=== PATIENT | male | born 1955 | race Caucasian/White ===

== ENCOUNTER 2018-05-08 17:23 | Outpatient (REF) | payer BC, SELFPAY ==
[2018-05-08 22:06] LABS: Anion Gap 8.8 mmol/L (3-11); BUN 21 mg/dL (7-18); CO2 26.2 mmol/L (21.0-32.0); CREATININE 1.04 mg/dL (0.70-1.30); Calcium 9.3 mg/dL (8.5-10.1); Chloride 105 mmol/L (98-107); Glucose 90 mg/dL (70-100); Potassium 4.2 mmol/L (3.5-5.1); Sodium 140 mmol/L (136-145)
[2018-05-10 09:34] LABS: Hepatitis C Ab w Rflx HCV PCR Negative (NEGAT)
== END 2018-05-08 17:43 ==
LOC: NCHCN 17:23
PROVIDERS: Visit Provider Internal Medicine
DX: I10 Essential (primary) hypertension (principal); E66.9 Obesity, unspecified; Z12.11 Encounter for screening for malignant neoplasm of colon
CPT/HCPCS: 80048; 86803

== ENCOUNTER 2019-11-07 08:05 | Outpatient (REF) | payer BC, SELFPAY ==
[2019-11-07 21:35] LABS: Anion Gap 10.6 mmol/L (3-11); BUN 24 mg/dL (7-18); CO2 24.4 mmol/L (21.0-32.0); CREATININE 0.92 mg/dL (0.70-1.30); Calcium 9.2 mg/dL (8.5-10.1); Calculated LDL 98 mg/dL (<100); Chloride 107 mmol/L (98-107); Cholesterol 155 mg/dL (<200); Glucose 99 mg/dL (74-106); HDL Cholesterol 39 mg/dL (40-60); Potassium 4.8 mmol/L (3.5-5.1); Sodium 142 mmol/L (136-145); Triglyceride 91 mg/dL (<150)
[2019-11-07 21:42] LABS: Hemoglobin A1C 5.8 % (3.8-5.6)
== END 2019-11-07 08:25 ==
LOC: NCHCN 08:05
PROVIDERS: PCP Internal Medicine; Visit Provider Internal Medicine
DX: I10 Essential (primary) hypertension (principal); E66.9 Obesity, unspecified
CPT/HCPCS: 80048; 80061; 83036

== ENCOUNTER 2020-11-12 16:38 | Outpatient (REF) | payer BC, SELFPAY ==
[2020-11-12 21:23] LABS: Anion Gap 9.6 mmol/L (3-11); BUN 25 mg/dL (7-18); CO2 27.4 mmol/L (21.0-32.0); Chloride 108 mmol/L (98-107); Glucose 118 mg/dL (74-106); Sodium 145 mmol/L (136-145)
== END 2020-11-12 16:39 | disposition home or self-care (01) ==
LOC: NCHCN 16:38
PROVIDERS: PCP Internal Medicine; Visit Provider Internal Medicine
DX: I10 Essential (primary) hypertension (principal); R73.03 Prediabetes
CPT/HCPCS: 80048; 83036

== ENCOUNTER 2021-01-14 14:29 | Emergency (ER) | payer BC, SELFPAY ==
[2021-01-14] VITALS (65 sets, daily range): BP systolic 107–137; BP diastolic 44–69; PULSE 55–91; RESP 10–20; TEMP 36.3; O2SAT 90–99
--- NOTE | 2021-01-14 14:30 | DI.US_ITS ---
Exam(s) US ABDOMEN EXAM: US ABDOMEN CLINICAL HISTORY: right upper abdominal pain, ?cholecystitis TECHNIQUE: Ultrasound abdomen performed using standard protocol. COMPARISON: No exams were available for comparison FINDINGS: Examination limited by patient body habitus. ABDOMINAL AORTA AND IVC: Visualized portions normal caliber. PANCREAS: Normal where visualized. LIVER: Increased echogenicity consistent with fatty infiltration. Hepatopedal flow in the Portal Vei n. The liver measures 19.4 cm long. GALLBLADDER: No evidence of cholelithiasis. No evidence of wall thickening. No pericholecystic fluid identified. BILIARY SYSTEM: Common bile duct measures < 7 mm. No intrahepatic biliary ductal dilation. MITCHELL'S SIGN: Negative. KIDNEYS: Kidneys are symmetric in size. No evidence of renal calculi. No evidence of hydronephrosis. No renal mass or cyst identified. SPLEEN: Not enlarged. ASCITES: None seen. IMPRESSION: Hepatomegaly and hepatic steatosis. DATA REPOSITORY:
[2021-01-14] MEDS: Normal Saline 1,000 ML 1000 ML IV (14:38)
[2021-01-14] MEDS: Ondansetron 4 MG/2 ML VIAL (14:39)
--- NOTE | 2021-01-14 14:39 | ED.GENADUL_ITS ---
Discharge Plan Disposition Patient Disposition: HOSPITAL, NON-SPECIFIC Condition: Stable Discharge Details Clinical Impression: Acute hemorrhagic pancreatitis Primary Care Provider: Mohit Chawla ED Provider: Laci Alfonso Home Meds and New Rx's Prescriptions: No Action lisinopril 20 mg Tablet 20 mg PO QHS RF: 0 meloxicam 7.5 mg Tablet 7.5 mg PO DAILY RF: 0 Medical Decision Making <René Del Rosario MD - Last Filed: 01/14/21 17:50> 65 yo male with hx of htn and prior appendectomy comes in with chief complaint of right upper abdominal pain. 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 HE has never had similar pain like this. He localizes the pain to the right upper abdomen. Denies chest pain or pressure and no dyspnea, no fevers. He is tender in the ruq and has no tenderness anywhere else. Given location of pain concern for possible cholecystitis vs pancreatitis, will obtain labs and u/s. pt's labs remarkable for wbc of 21, u/s per tech is unremarkable. He still has ruq tenderness on exam, will obtain ct to further evaluate ct shows possible hemorrhagic pancreatitis, patient stable and pain improved, will repeat cbc. [place] [facility] [place] Differential Diagnosis Differential Diagnosis: cholecystitis, pancreatitis, biliary colic Imaging Data Radiologic Study: Attestation: I personally reviewed and interpreted this imaging study as follows: Imaging: Ultrasound My impression: no acute findings Radiologic Study #2: Attestation: I personally reviewed and interpreted this imaging study as follows: Imaging: CT Scan Radiologist's impression: IMPRESSION: Suspect hemorrhagic pancreatitis as described above. Fatty infiltration of the liver. Osseous findings as above. Arteriosclerotic changes of the aorta. Lab Data Lab results reviewed: Yes I reviewed the patient's lab results. <Laci Alfonso MD - Last Filed: 01/15/21 01:30> Patient signed out to me pending finding appropriate facility for admission. He did receive IV antibiotic per [facility] GI recomendation. Repeat hemoglobin at 8:30 PM continues to trend down now 11.1. Patient remained hemodynamically stable with normal heart rate and blood pressure. Pain mostly controlled at this point. Multiple facilities call including [facility], [facility], [facility] [place], [facility], [facility], [facility], [facility], [facility], [facility] Ultimately able to speak to acute care surgeon, Dr. Corey, at [facility]. Patient's repeat hemoglobin at midnight now 10.5 though continues to remain stable. Patient accepted for transfer to [facility] by ground ambulance for further management of presumed hemorrhagic pancreatitis. Patient aware of need for transfer and agrees. Lab Data Lab results reviewed: Yes I reviewed the patient's lab results. HPI <René Del Rosario MD - Last Filed: 01/14/21 17:50> General Mode of arrival: EMS . Date/Time Provider Initiated Documentation: 01/14/21 14:36 . Limitations to Documentation: no limitations . Information obtained by: patient . History of Present Illness 65 year old M presents to the emergency department with the chief complaint of abdominal pain, described as severe, with intensity rated at 8. Quality is described as sharp, and is localized to the abdomen. Patient reports no radiation. Patient started experiencing this day(s) and it has been constant. No relieving factors improve symptom(s), No exacerbating factors reported . Related Data Home Medications Medication Instructions Recorded Confirmed lisinopril 20 mg PO QHS 01/14/21 01/14/21 meloxicam 7.5 mg PO DAILY 01/14/21 01/14/21 Allergies Allergy/AdvReac Type Severity Reaction Status Date / Time Penicillins Allergy Other (See Unverified 01/14/21 14:32 Comment) General Stated Complaint: Abd Prob JOSE MANUEL: 3 Review of Systems <René Del Rosario MD - Last Filed: 01/14/21 17:50> All systems reviewed & are unremarkable except as noted in HPI and below Constitutional Constitutional: Denies chills, Denies fever(s) and Denies weakness Cardiovascular Cardiovascular: Denies chest pain and Denies dyspnea Respiratory Respiratory: Denies cough and Denies dyspnea Gastrointestinal Gastrointestinal: Denies abdominal pain, Denies nausea and Denies vomiting Musculoskeletal Musculoskeletal: Denies joint swelling Neurologic Neurologic: Denies weakness PFSH <René Del Rosario MD - Last Filed: 01/14/21 17:50> Social History Smoking/Tobacco Use Status: Never Smoking risk assessment performed?: Yes Alcohol Intake: never Drug use: Never Substance use type: does not use Do you feel safe at home: Yes Do you feel safe in your relationship?: Yes Exam <René Del Rosario MD - Last Filed: 01/14/21 17:50> Const General: no acute distress Orientation: alert [facility] Head: normal to inspection Ears: external ears normal General nose exam: external nose normal Mouth: moist mucous membranes Eyes General: appearance normal, both eyes and all related structures Neck Neck: normal visual inspection Resp Effort & Inspection: normal respiratory effort and able to speak in complete sentences Cardio Rate: regular rate GI Palpation: soft, not rigid and tender Skin General skin exam: no rashes or lesions noted Neuro General: patient alert and patient oriented x3 Extrem General: normal to inspection Psych Mental Status: mental status grossly normal Course <René Del Rosario MD - Last Filed: 01/14/21 17:50> Vital Signs Vital signs: Vital Signs Temperature 36.3 C L 01/14/21 14:27 Pulse 62 01/14/21 14:27 Respiratory Rate 18 01/14/21 14:27 Blood Pressure 107/61 01/14/21 14:27 Pulse Oximetry 99 01/14/21 14:27 Temperature 36.3 C L 01/14/21 14:27 Temperature Source Temporal Artery Scan 01/14/21 14:27 Pulse 62 01/14/21 14:27 Respiratory Rate 18 01/14/21 14:27 Respiratory Effort Non-Labored 01/14/21 14:34 Blood Pressure 107/61 01/14/21 14:27 Blood Pressure Position Sitting 01/14/21 14:27 Pulse Oximetry 99 01/14/21 14:27 Oxygen Delivery Method Room Air 01/14/21 14:27 Oxygen Flow Rate 0 01/14/21 14:27 Sign Out <René Del Rosario MD - Last Filed: 01/14/21 17:50> Sign Out Data: Sign Out Comment: acute abdominal pain, ct shows hemorrhagic pancreatitis, [place] [facility] [place] Last updated by René Del Rosario MD at 01/14/21 19:45
[2021-01-14] MEDS: Ketorolac 15 MG/ML VIAL IVP (14:44)
[2021-01-14 14:46] LABS: Abs Immature Grans 0.22 10^3/uL (0.0-0.06); Absolute Basophil Count 0.13 10^3/uL (0.0-0.2); Absolute Eosinophil Count 0.11 10^3/uL (0.0-0.7); Absolute Lymphocyte Count 2.12 10^3/uL (1.2-3.4); Absolute Neutrophil Count 17.57 10^3/uL (1.2-6.7); Basophils % 0.6; Eosinophils % 0.5; HCT 39.8 % (40.0-50.0); Lymphocytes % 9.8; MCH 29.5 pg (27.0-33.0); MCHC 32.7 % (32.0-36.0); MCV 90.2 fL (80-95); MPV 10.3 fL (8.0-11.0); Monocytes % 6.8; Neutrophils % 81.3; Nucleated RBC 0 %; Platelet Count 329 10^3/uL (130-400); RBC 4.41 10^6/uL (4.36-5.78); RDW 12.9 % (11.8-14.1); RDW-SD 42.8 fL; WBC 21.61 10^3/uL (4.4-10.8)
[2021-01-14 14:53] LABS: Lipase 170 U/L (73-393)
[2021-01-14 14:54] LABS: Absolute Monocyte Count 1.47 10^3/uL (0.1-0.8)
[2021-01-14 15:01] LABS: Prothrombin Time 10.4 sec (9.3-11.0)
[2021-01-14 15:03] LABS: ALT 35 U/L (16-63); AST 21 U/L (15-37); Albumin 3.7 g/dL (3.4-5.0); Alkaline Phosphatase 61 U/L (46-116); Anion Gap 7.9 mmol/L (3-11); BUN 22 mg/dL (7-18); Bilirubin, Direct 0.1 mg/dL (0.0-0.2); Bilirubin, Total 0.4 mg/dL (0.2-1.0); CO2 30.1 mmol/L (21.0-32.0); CREATININE 1.4 mg/dL (0.70-1.30); Calcium 8.8 mg/dL (8.5-10.1); Chloride 103 mmol/L (98-107); Estimated GFR 51.18 (mL/min/1.73m2); Glucose 175 mg/dL (74-106); Magnesium 2.1 mg/dL (1.8-2.4); Potassium 3.9 mmol/L (3.5-5.1); Sodium 141 mmol/L (136-145); Total Protein 6.7 g/dL (6.4-8.2)
--- NOTE | 2021-01-14 15:30 | DI.CT_ITS ---
Exam(s) CT ABDOMEN PELVIS W EXAM: CT ABDOMEN PELVIS W CLINICAL HISTORY: right sided abdominal pain TECHNIQUE: Imaging Protocol: Axial computed tomography images with coronal and sagittal reformatted images were created and reviewed CONTRAST MATERIAL: Intravenous: Omnipaque 350 Contrast volume:100 mL Oral: No COMPARISON: No exams were available for comparison FINDINGS: ABDOMEN: Lung Bases: Normal where visualized. Liver: Fatty infiltration of the liver. No measurable mass. Portal, Superior Mesenteric, and Splenic Veins: Unremarkable. Gallbladder and Biliary Tract: No radiodense calculus or dilation. Pancreas: There is a large amount of fluid around the head of the pancreas and duodenum extending int o the right pararenal space around the ascending colon. The the duodenum and portions of the head of the pancreas is poorly visualized. Spleen: Normal. Adrenals: No masses seen. Kidneys: Normal size, contour and axis. No radiodense stones or obstructive uropathy. No masses seen. Abdominal Aorta: Abdominal portion non-dilated. Atherosclerosis. Bowel: No obstruction or bowel wall thickening. The appendix is not visualized. Portions of the duod enum are obscured from visualization due to the hemorrhage. Peritoneal Cavity: There is a small amount of perihepatic ascites. No free air. Lymph Nodes: Within normal limits. Bones: Within normal limits for the patient's age. Soft Tissues: There is a fat containing left inguinal hernia. PELVIS: Bladder: Symmetric distention, no gross wall thickening. Reproductive Organs: Mild prostatic enlargement. Lymph Nodes: Within normal limits. Bones: Within normal limits for the patient's age. IMPRESSION: 1. There is a large amount of hemorrhage seen in the right pararenal space. There is hemorrhage surr ounding the duodenum, pancreas and ascending colon. Differential considerations include hemorrhagic pancreatitis, duodenal or gastric ulcer disease or possible neoplasm or vascular injury. 2. No evidence of cholelithiasis or biliary ductal dilatation. 3. Hepatic steatosis. RADIATION DOSE DELIVERED: 1,714.58mGy.cm Total DLP DATA REPOSITORY: All CT scans at this facility are submitted to the National Radiology Data Registry (NRDR) Dose Index Registry (DIR) with the [employer] (A[employer]). RADIATION OPTIMIZATION: All CT scans at this facility use at least one of these dose optimization te chniques: automated exposure control; mA and/or kV adjustment per patient size (includes targeted exa ms where dose is matched to clinical indication); or iterative reconstruction.
[2021-01-14] MEDS: HYDROmorphone 2 MG/ML VIAL 1 MG IVP (15:46)
[2021-01-14] MEDS: Omnipaque 350 MG/ML 100 ML BTL IJ (16:26)
[2021-01-14] MEDS: Normal Saline - Diluent 50 ML VIAL IV (16:27)
[2021-01-14] MEDS: Normal Saline Flush 10 ML SYR IVP (16:27)
--- NOTE | 2021-01-14 17:01 | DI.VRAD_ITS ---
PROCEDURE INFORMATION: Exam: CT Abdomen And Pelvis With Contrast Exam date and time: 01/14/2021 3:37 PM Age: 65 years old Clinical indication: Other: Right sided abd pain; Prior surgery; Surgery date: 6+ months; Surgery type: Appendectomy TECHNIQUE: Imaging protocol: Computed tomography of the abdomen and pelvis with contrast. COMPARISON: SD US ABDOMEN 01/14/2021 2:52 PM FINDINGS: Lungs: The visualized lung bases are within normal limits. Heart: The visualized portions of the heart and pericardium are unremarkable. Liver: There is fatty infiltration of the liver. Gallbladder and bile ducts: The gallbladder appears within normal limits. Pancreas: There is a large hemorrhage within the abdomen surrounding the head of the pancreas. This extends into the right pericolic gutter. This hemorrhage is suspicious for hemorrhagic pancreatitis. The hemorrhage measures approximately 23.6 x 21.0 cm. Spleen: The spleen is unremarkable. Adrenal glands: The adrenal glands are unremarkable. Kidneys and ureters: Normal. No hydronephrosis. Stomach and bowel: Unremarkable. No obstruction. No mucosal thickening. Appendix: No evidence of appendicitis. Intraperitoneal space: There is a small amount of fluid within the pelvis. Vasculature: There are arteriosclerotic changes of the aorta. Lymph nodes: No enlarged lymph nodes. Urinary bladder: The urinary bladder is unremarkable there. Reproductive: The prostate and seminal vesicles are unremarkable. Bones/joints: There are degenerative changes of the thoracic and lumbar spines. There is degenerative disc disease at multiple levels. Soft tissues: There is a left fat containing incipient inguinal hernia. IMPRESSION: Suspect hemorrhagic pancreatitis as described above. Fatty infiltration of the liver. Osseous findings as above. Arteriosclerotic changes of the aorta. THIS REPORT CONTAINS FINDINGS THAT MAY BE CRITICAL TO PATIENT CARE. The findings were verbally communicated via telephone conference with René Vazquez at 5:01 PM EDT on 01/14/2021. The findings were acknowledged and understood. Dictated and Authenticated by: Antonino Lloyd MD. Ordering:HOMER Merritt MD
[2021-01-14 17:28] LABS: ETHANOL BLOOD < 3.0 mg/dL (<3)
[2021-01-14 17:44] LABS: Bilirubin Negative (Negative); Blood Negative (Negative); Clarity Clear (Clear); Glucose Negative (Negative); Ketones Negative (Negative); Leukocyte Esterase Negative (Negative); Nitrite Negative (Negative); Specific Gravity 1.015 (1.005-1.025)
[2021-01-14 17:59] LABS: HCT 37.2 % (40.0-50.0); HGB 12.2 g/dL (13.5-17.5); MCH 29.8 pg (27.0-33.0); MCHC 32.8 % (32.0-36.0); MPV 10.5 fL (8.0-11.0); Platelet Count 307 10^3/uL (130-400); RBC 4.09 10^6/uL (4.36-5.78); RDW 13.1 % (11.8-14.1); RDW-SD 43.8 fL; WBC 24.41 10^3/uL (4.4-10.8)
[2021-01-14 18:02] LABS: Bacteria Negative HPF (Negative); Crystals Mod Calcium Oxalate HPF (Negative); Epithelial Cells Negative HPF (Negative); Mucus Negative (Negative); RBC Negative HPF (0-2); WBC 0-2 HPF (0-5)
[2021-01-14 18:03] LABS: C & S Indicated? No
[2021-01-14 18:13] LABS: Source Nasal/Nares
[2021-01-14] MEDS: Normal Saline 1,000 ML 150 ML IV (20:25)
[2021-01-14] MEDS: CIPROFLOXACIN 400 MG/200 ML BAG 200 MG IVPB (20:29)
[2021-01-14] MEDS: metroNIDAZOLE 500 MG/100 ML BAG 100 MG IVPB (20:31)
[2021-01-14 20:56] LABS: COVID-19 PCR Negative (Negative)
[2021-01-14 20:58] LABS: HCT 33.6 % (40.0-50.0); HGB 11.1 g/dL (13.5-17.5)
[2021-01-15] VITALS (29 sets, daily range): BP systolic 49–148; BP diastolic 34–76; PULSE 45–78; RESP 11–20; O2SAT 92–100
[2021-01-15 00:11] LABS: HCT 32.1 % (40.0-50.0); HGB 10.5 g/dL (13.5-17.5)
[2021-01-15] MEDS: fentaNYL 100 MCG/2 ML VIAL 50 MCG IVP (02:58)
--- NOTE | 2021-01-15 03:15 | NUR.NOTE ---
Pt up at bedside to urinate prior to transfer. Pt had increase in pain, became diaphoretic and nauseous. Pt was bradycardia 30's and hypotensive (SBP 90's). Pt given medication for pain (see MAR) and a bolus off 1 L NS was started under pressure. PT heart rate improved to the 60's and his SBP was up to 1teens. Pt color returned to baseline. Pt deemed to be stable fro transport by Dr. Alfonso.
== END 2021-01-15 03:17 | disposition short-term general hospital (02) ==
PROVIDERS: Emergency Medicine; Emergency Provider Emergency Medicine; PCP Internal Medicine
DX: K85.90 Acute pancreatitis without necrosis or infection, unspecified (principal); K86.89 Other specified diseases of pancreas
CPT/HCPCS: 36415; 80053; 83690; 85027; 86850; 86900; 86901; 87635; 96361; 96365; 96368; 96375; 99285; 74177; 76700; 80320; 81003; 81015; 82248; 83735; 85014; 85018; 85025; 85610; 85730; 99284; J0744; J1885; J2405; J3010; J3490